=== PATIENT | male | born 1965 | race Caucasian/White ===

== ENCOUNTER 2017-05-08 12:40 | Inpatient (IN) | payer MEDICAID ==
[~2017-05-08] VITALS: Ht 172.7 cm; Wt 108.0 kg
[2017-05-08] MEDS ORDERED: NACL 0.9% 1,000 ML IV ONE ×2 (12:55→15:15)
[2017-05-08] MEDS ORDERED: ASPIRIN 325 MG TAB PO ONE (12:55)
[2017-05-08] MEDS ORDERED: DILTIAZEM 25 MG/5 ML VIAL IVP ONE (12:55)
[2017-05-08 12:56] VITALS: BP 124/65
[2017-05-08] MEDS ORDERED: INSULIN REGULAR, HUMAN 100 UNIT/ML VIAL IV ONE (13:15)
[2017-05-08 13:41] LABS: HEMATOCRIT 43.8 % (36-52); HEMOGLOBIN 14.7 g/dL (12.0-18.0); MEAN CORPUSCULAR HEMOGLOBIN 30 pg (27-31); MEAN CORPUSCULAR HGB CONC 34 g/dL (33-37); MEAN CORPUSCULAR VOLUME 89.5 fL (80-94); PLATELET COUNT (AUTO) 90 K/uL (140-450); RED CELL DISTRIBUTION WIDTH 13.8 % (11.6-13.7); WHITE BLOOD COUNT (AUTO) 7.2 K/uL (4.8-10.8)
[2017-05-08 14:13] LABS: ALBUMIN 3.1 g/dL (3.4-5.0); CREATININE 0.9 mg/dL (0.7-1.3); TOTAL BILIRUBIN 0.6 mg/dL (0.0-1.0)
[2017-05-08 14:14] LABS: FREE T4 (FREE THYROXINE) 1.17 ng/dL (0.76-1.46); THYROID STIMULATING HORMONE 3.85 uIU/mL (0.34-3.74)
[2017-05-08 14:23] LABS: LYMPHOCYTES % (MANUAL) 56 % (20-46)
[2017-05-08 14:24] LABS: MONOCYTES % (MANUAL) 6 % (5-12)
[2017-05-08 14:43] LABS: BARBITURATE, URINE NEG. ng/ml (NEG <=200); BENZODIAZEPINE, URINE NEG. ng/mL (NEG <=200); CANNABINOID, URINE NEG. ng/mL (NEG <=50); COCAINE, URINE NEG. ng/mL (NEG <=300); OPIATE, URINE NEG. ng/mL (NEG <=2000); PHENCYCLIDINE SCREEN,URINE NEG. ng/mL (NEG <=25)
[2017-05-08 14:46] LABS: APPEARANCE,URINE CLEAR (CLEAR); BILIRUBIN,URINE NEGATIVE (NEGATIVE); BLOOD, URINE 2+ (NEGATIVE); LEUKOCYTE ESTERASE ,URINE NEGATIVE (NEGATIVE); NITRITE, URINE NEGATIVE (NEGATIVE); PH,URINE 5.5 (5.0-9.0); UGLUCOSE 3+ (NEGATIVE)
[2017-05-08 15:01] LABS: COLOR,URINE STRAW (YELLOW)
[2017-05-08 15:11] LABS: RBC,URINE 0-5 (RARE) /HPF (0-5); WBC,URINE NONE SEEN /HPF (0-5)
[2017-05-08] MEDS ORDERED: INSULIN REGULAR, HUMAN 100 UNIT/ML VIAL IVP ONE (15:15)
[2017-05-08 17:00] VITALS: BP 131/87
[2017-05-08] MEDS ORDERED: PNEUMOCOCCAL VACCINE 23 MCG/0.5 ML VIAL IMVAC SCH (18:05)
[2017-05-08] MEDS ORDERED: NITROGLYCERIN 0.4 MG TAB SL PRN ×3 (18:45→21:15)
[2017-05-08] MEDS ORDERED: METO25TA PO (19:29)
[2017-05-08] MEDS ORDERED: MONT10TA35 PO (19:29)
[2017-05-08] MEDS ORDERED: SIMV20TA1 PO (19:29)
[2017-05-08] MEDS ORDERED: FURO20TA8 PO (19:29)
[2017-05-08] MEDS ORDERED: GABA100C PO (19:29)
[2017-05-08] MEDS ORDERED: BENZ1TAB42 PO (19:29)
[2017-05-08] MEDS ORDERED: METF500T PO (19:29)
[2017-05-08] MEDS ORDERED: BUS5 PO (19:29)
[2017-05-08] MEDS ORDERED: OMEP20TC12 PO (19:29)
[2017-05-08] MEDS ORDERED: DIVA500T1 PO (19:29)
[2017-05-08] MEDS ORDERED: SYN.05 PO (19:29)
[2017-05-08] MEDS ORDERED: LOSA25TA22 PO (19:29)
[2017-05-08] MEDS ORDERED: ISOS10TA9 PO (19:29)
[2017-05-08] MEDS: DEXT 5% / NACL 0.45% 1,000 ML IV SCH (19:45)
[2017-05-08 20:00] VITALS: BP 122/83
[2017-05-08] MEDS ORDERED: LORazepam 2 MG/ML VIAL IVP PRN (21:15)
[2017-05-08] MEDS ORDERED: LORazepam 1 MG TAB PO PRN (21:15)
[2017-05-08] MEDS ORDERED: MORPHINE SULFATE 2 MG/ML SYR IVP PRN ×2 (21:15)
[2017-05-08] MEDS ORDERED: ALUMINUM HYD/MAG/SIMETHICONE 30 ML UDC PO PRN (21:15)
[2017-05-08] MEDS ORDERED: ACETAMINOPHEN 325 MG TAB PO PRN (21:15)
[2017-05-08] MEDS ORDERED: DEXTROSE 50% 50 ML SYR IVP PRN (21:15)
[2017-05-08] MEDS ORDERED: ZOLPIDEM 5 MG TAB PO PRN (21:15)
[2017-05-08] MEDS ORDERED: ONDANSETRON 4 MG/2 ML VIAL IVP PRN (21:15)
[2017-05-08] MEDS ORDERED: HYDROcodone/APAP 5/325 MG 1 TAB TAB PO PRN (21:15)
[2017-05-08] MEDS: INSULIN LISPRO SLIDING SCALE 100 UNITS/ML VIAL SUBQ PRN (22:04)
[2017-05-08 22:51] LABS: CREATINE KINASE MB 0.3 ng/mL (0-3.6)
[2017-05-09] VITALS: BP 142/96
[2017-05-09] MEDS: DEXT 5% / NACL 0.45% 1,000 ML IV SCH (03:50)
[2017-05-09 04:00] VITALS: BP 141/99
[2017-05-09] MEDS: INSULIN LISPRO SLIDING SCALE 100 UNITS/ML VIAL SUBQ PRN ×3 (06:05→20:30)
[2017-05-09] MEDS: LEVOTHYROXINE 0.05 MG TAB PO SCH (06:05)
[2017-05-09] MEDS: BLOOD GLUCOSE MONITORING 1 DEV DEV FS SCH ×4 (06:05→20:27)
[2017-05-09 08:00] VITALS: BP 167/101
[2017-05-09 08:00] LABS: HEMATOCRIT 40.2 % (36-52); HEMOGLOBIN 13.7 g/dL (12.0-18.0); MEAN CORPUSCULAR HEMOGLOBIN 30 pg (27-31); MEAN CORPUSCULAR HGB CONC 34 g/dL (33-37); MEAN CORPUSCULAR VOLUME 88.6 fL (80-94); PLATELET COUNT (AUTO) 76 K/uL (140-450); RED BLOOD CELL COUNT(AUTO) 4.54 MIL/uL (4.20-6.10); RED CELL DISTRIBUTION WIDTH 13.6 % (11.6-13.7); WHITE BLOOD COUNT (AUTO) 6.8 K/uL (4.8-10.8)
[2017-05-09] MEDS ORDERED: metFORMIN 500 MG TAB PO SCH ×2 (08:00→12:00)
[2017-05-09 08:14] LABS: ANION GAP 14.5 (8-16); CARBON DIOXIDE 25.4 mmol/L (21-32); CREATININE 0.8 mg/dL (0.7-1.3); POTASSIUM 3.9 mmol/L (3.5-5.1)
[2017-05-09 08:18] LABS: MAGNESIUM 1.7 mg/dL (1.8-2.4); PHOSPHORUS 4.2 mg/dL (2.5-4.9)
[2017-05-09] MEDS: busPIRone 5 MG TAB PO SCH (08:24)
[2017-05-09] MEDS: GABAPENTIN 100 MG CAP PO SCH ×2 (08:25→20:29)
[2017-05-09] MEDS: BENZTROPINE 1 MG TAB PO SCH ×2 (08:25→20:27)
[2017-05-09] MEDS: MONTELUKAST SODIUM 10 MG TAB PO SCH (08:25)
[2017-05-09] MEDS: LOSARTAN 25 MG TAB PO SCH (08:26)
[2017-05-09] MEDS: FUROSEMIDE 20 MG TAB PO SCH (08:26)
[2017-05-09] MEDS: METOPROLOL 50 MG TAB PO SCH ×2 (08:27→20:28)
[2017-05-09] MEDS: ISOSORBIDE DINITRATE 10 MG TAB PO SCH ×2 (08:27→20:28)
[2017-05-09] MEDS: DOCUSATE SODIUM 100 MG GELCAP PO SCH (08:27)
[2017-05-09] MEDS: DIVALPROEX 500 MG TABEC PO SCH ×2 (08:42→20:27)
[2017-05-09] MEDS: IBUPROFEN 600 MG TAB PO PRN ×2 (08:42→20:29)
[2017-05-09] MEDS ORDERED: NON-FORMULARY ITEM (Omeprazole (Omeprazole) 20 MG) PO SCH (09:00)
[2017-05-09] MEDS ORDERED: DIVALPROEX 500 MG TABER PO SCH (09:00)
[2017-05-09 09:24] LABS: CREATINE KINASE MB 1.1 ng/mL (0-3.6)
[2017-05-09 09:33] LABS: EOSINOPHILS % (MANUAL) 1 % (0-4); LYMPHOCYTES % (MANUAL) 44 % (20-46); MONOCYTES % (MANUAL) 5 % (5-12)
[2017-05-09] MEDS: PANTOPRAZOLE 40 MG TABEC PO SCH (09:53)
[2017-05-09 12:00] VITALS: BP 126/81
[2017-05-09] MEDS ORDERED: LOVENOX 1MG/KG Q12H SUBQ SCH (12:05)
[2017-05-09] MEDS: PIOGLITAZONE 30 MG TAB PO SCH ×2 (12:13→12:15)
[2017-05-09] MEDS ORDERED: ASPIRIN 81 MG TAB.CHEW PO SCH (13:45)
[2017-05-09 16:00] VITALS: BP 144/101
[2017-05-09] MEDS: metFORMIN 500 MG TAB PO SCH (17:30)
[2017-05-09 19:45] VITALS: BP 169/98
[2017-05-09] MEDS: SIMVASTATIN 20 MG TAB PO SCH (20:29)
[2017-05-09] MEDS ORDERED: MAG SULF 2000 MG/WATER PREMIX 50 ML IV SCH (21:30)
[2017-05-10] VITALS: BP_SYST 132; BP_SYST 159; BP_DIAS 74; BP_DIAS 87
[2017-05-10 04:00] VITALS: BP 154/99
[2017-05-10] MEDS: LEVOTHYROXINE 0.05 MG TAB PO SCH (06:30)
[2017-05-10] MEDS: INSULIN LISPRO SLIDING SCALE 100 UNITS/ML VIAL SUBQ PRN ×4 (06:31→21:33)
[2017-05-10] MEDS: BLOOD GLUCOSE MONITORING 1 DEV DEV FS SCH ×4 (06:31→21:00)
[2017-05-10 07:43] LABS: HEMATOCRIT 40.2 % (36-52); HEMOGLOBIN 13.5 g/dL (12.0-18.0); MEAN CORPUSCULAR HEMOGLOBIN 30 pg (27-31); MEAN CORPUSCULAR HGB CONC 34 g/dL (33-37); PLATELET COUNT (AUTO) 78 K/uL (140-450); RED BLOOD CELL COUNT(AUTO) 4.47 MIL/uL (4.20-6.10); RED CELL DISTRIBUTION WIDTH 13.3 % (11.6-13.7); WHITE BLOOD COUNT (AUTO) 6.5 K/uL (4.8-10.8)
[2017-05-10 07:53] LABS: ANION GAP 13.2 (8-16); CARBON DIOXIDE 26.9 mmol/L (21-32); CREATININE 0.8 mg/dL (0.7-1.3); POTASSIUM 4.1 mmol/L (3.5-5.1)
[2017-05-10 08:00] VITALS: BP 143/100
[2017-05-10] MEDS: GABAPENTIN 100 MG CAP PO SCH ×2 (08:27→20:55)
[2017-05-10] MEDS: PANTOPRAZOLE 40 MG TABEC PO SCH (08:27)
[2017-05-10] MEDS: busPIRone 5 MG TAB PO SCH (08:27)
[2017-05-10] MEDS: metFORMIN 500 MG TAB PO SCH ×2 (08:28→16:28)
[2017-05-10] MEDS: BENZTROPINE 1 MG TAB PO SCH ×2 (08:28→20:54)
[2017-05-10] MEDS: MONTELUKAST SODIUM 10 MG TAB PO SCH (08:28)
[2017-05-10] MEDS: PIOGLITAZONE 30 MG TAB PO SCH (08:29)
[2017-05-10] MEDS: FUROSEMIDE 20 MG TAB PO SCH (08:29)
[2017-05-10] MEDS: LOSARTAN 25 MG TAB PO SCH (08:29)
[2017-05-10] MEDS: DIVALPROEX 500 MG TABEC PO SCH ×2 (08:29→20:54)
[2017-05-10] MEDS: METOPROLOL 50 MG TAB PO SCH ×2 (08:30→20:55)
[2017-05-10] MEDS: ISOSORBIDE DINITRATE 10 MG TAB PO SCH ×2 (08:30→20:55)
[2017-05-10] MEDS: DOCUSATE SODIUM 100 MG GELCAP PO SCH (08:31)
[2017-05-10] MEDS: ASPIRIN 81 MG TAB.CHEW PO SCH (08:31)
[2017-05-10] MEDS ORDERED: ASPIRIN 81 MG TAB.CHEW PO SCH (09:00)
[2017-05-10 09:19] LABS: EOSINOPHILS % (MANUAL) 2 % (0-4); LYMPHOCYTES % (MANUAL) 53 % (20-46); MONOCYTES % (MANUAL) 11 % (5-12)
[2017-05-10 12:00] VITALS: BP 138/87
[2017-05-10] MEDS: IBUPROFEN 600 MG TAB PO PRN (12:22)
[2017-05-10 16:00] VITALS: BP 130/80
[2017-05-10 20:00] VITALS: BP 149/93
[2017-05-10] MEDS: SIMVASTATIN 20 MG TAB PO SCH (20:55)
[2017-05-11] VITALS: BP 146/98
[2017-05-11] MEDS: IBUPROFEN 600 MG TAB PO PRN (00:06)
[2017-05-11 04:40] VITALS: BP 136/92
[2017-05-11 05:50] LABS: HEMATOCRIT 41.9 % (36-52); HEMOGLOBIN 13.9 g/dL (12.0-18.0); MEAN CORPUSCULAR HEMOGLOBIN 30 pg (27-31); MEAN CORPUSCULAR HGB CONC 33 g/dL (33-37); MEAN CORPUSCULAR VOLUME 89.4 fL (80-94); PLATELET COUNT (AUTO) 90 K/uL (140-450); RED BLOOD CELL COUNT(AUTO) 4.68 MIL/uL (4.20-6.10); RED CELL DISTRIBUTION WIDTH 13.6 % (11.6-13.7); WHITE BLOOD COUNT (AUTO) 7.6 K/uL (4.8-10.8)
[2017-05-11] MEDS: BLOOD GLUCOSE MONITORING 1 DEV DEV FS SCH (06:00)
[2017-05-11] MEDS: LEVOTHYROXINE 0.05 MG TAB PO SCH (06:45)
[2017-05-11] MEDS: INSULIN LISPRO SLIDING SCALE 100 UNITS/ML VIAL SUBQ PRN (06:46)
[2017-05-11 07:44] LABS: ALBUMIN 2.9 g/dL (3.4-5.0); ANION GAP 13.9 (8-16); CARBON DIOXIDE 27.4 mmol/L (21-32); CREATININE 0.9 mg/dL (0.7-1.3); POTASSIUM 4.3 mmol/L (3.5-5.1); TOTAL BILIRUBIN 0.5 mg/dL (0.0-1.0)
[2017-05-11 08:00] VITALS: BP 155/98
[2017-05-11] MEDS: PIOGLITAZONE 30 MG TAB PO SCH (08:45)
[2017-05-11] MEDS: ISOSORBIDE DINITRATE 10 MG TAB PO SCH (08:45)
[2017-05-11] MEDS: LOSARTAN 25 MG TAB PO SCH (08:45)
[2017-05-11] MEDS: DIVALPROEX 500 MG TABEC PO SCH (08:45)
[2017-05-11] MEDS: ASPIRIN 81 MG TAB.CHEW PO SCH (08:46)
[2017-05-11] MEDS: METOPROLOL 50 MG TAB PO SCH (08:46)
[2017-05-11] MEDS: FUROSEMIDE 20 MG TAB PO SCH (08:46)
[2017-05-11] MEDS: metFORMIN 500 MG TAB PO SCH (08:47)
[2017-05-11] MEDS: BENZTROPINE 1 MG TAB PO SCH (08:47)
[2017-05-11] MEDS: DOCUSATE SODIUM 100 MG GELCAP PO SCH ×2 (08:47→08:51)
[2017-05-11] MEDS: GABAPENTIN 100 MG CAP PO SCH (08:47)
[2017-05-11] MEDS: MONTELUKAST SODIUM 10 MG TAB PO SCH (08:47)
[2017-05-11] MEDS: busPIRone 5 MG TAB PO SCH (08:48)
[2017-05-11] MEDS: PANTOPRAZOLE 40 MG TABEC PO SCH (08:48)
[2017-05-11 11:13] LABS: EOSINOPHILS % (MANUAL) 5 % (0-4); LYMPHOCYTES % (MANUAL) 61 % (20-46); MONOCYTES % (MANUAL) 12 % (5-12)
[2017-05-11 11:46] LABS: PROTHROMBIN TIME 10.7 secs (10.8-13.4)
== END 2017-05-11 11:35 | disposition short-term general hospital (02) | DRG 190 ==
LOC: MED 12:40 → MTU 16:24
PROVIDERS: ADMIT Preventive Medicine Preventive Medicine/Occupational Environmental Medicine; ATTEND Preventive Medicine Preventive Medicine/Occupational Environmental Medicine
PROC: 3E0234Z Introduction of Serum, Toxoid and Vaccine into Muscle, Percutaneous Approach (ICD-10-PCS; principal; 2017-05-08)
DX: I21.A1 Myocardial infarction type 2 (principal); E43 Unspecified severe protein-calorie malnutrition; D69.6 Thrombocytopenia, unspecified; E11.40 Type 2 diabetes mellitus with diabetic neuropathy, unspecified; E11.65 Type 2 diabetes mellitus with hyperglycemia; I10 Essential (primary) hypertension; I48.0 Paroxysmal atrial fibrillation; E78.5 Hyperlipidemia, unspecified; R31.9 Hematuria, unspecified; E03.9 Hypothyroidism, unspecified; F31.9 Bipolar disorder, unspecified; I24.9 Acute ischemic heart disease, unspecified; I25.119 Atherosclerotic heart disease of native coronary artery with unspecified angina pectoris; Z82.49 Family history of ischemic heart disease and other diseases of the circulatory system; Z68.36 Body mass index [BMI] 36.0-36.9, adult; Z88.8 Allergy status to other drugs, medicaments and biological substances; Z23 Encounter for immunization; Z79.84 Long term (current) use of oral hypoglycemic drugs; Z79.899 Other long term (current) drug therapy
CPT/HCPCS: 36415; 80048; 80053; 80305; 81001; 82550; 82553; 82948; 83735; 83880; 84100; 84439; 84443; 84484; 85025; 85379; 85610; 85730; 87081; 90732; 93005; 96360; 99285; J1815; J3475; J7030

== ENCOUNTER 2018-03-26 16:15 | Emergency (ER) | payer MEDICAID ==
[~2018-03-26] VITALS: Ht 172.7 cm; Wt 104.3 kg
[~2018-03-26 16:15] MED LIST: BENZ-248 PO; BUS5 PO; DIVA500T1 PO; FURO20TA8 PO; GABA100C PO; ISOS10TA9 PO; LOSA25TA43 PO; METF500T PO; METO25TA PO; MONT10TA35 PO; OMEP20TC12 PO; SIMV20TA1 PO; SYN.05 PO
[2018-03-26 16:32] VITALS: BP 169/103
--- NOTE | 2018-03-26 17:15 | NUR ---
PATIENT TAKEN TO ER BED 12.
--- NOTE | 2018-03-26 17:20 | NUR ---
PT BIB TO THE ED WITH THE CHIEF C/O LEFT GREAT TOE PAIN. DENIES ANY INJURY. NO SWELLING OR INJURY NOTED. NO ANY DRAINAGE NOTED. PT WAS SEEN BY DIRECTOR OF CAREER SERVICES ON February TAKING TERBINAFINE HCL SINCE THEN. 6/10 THROBBING PAIN IN LET GREAT TOE THAT IS NON RADIATING. ROM INTACT. CAP REFILL LESS THAN 3 SEC. ER MD MADE AWARE. SAFETY PRECAUTIONS IMPLEMENTED. WILL CONTINUE TO MONITOR. FAMILY MEMBER AT BEDSIDE. HX OF NEUROPATHY, DM, COPD, ANXIETY, GERD, HTN, HYPOTHYROIDISM, A FIB.
--- NOTE | 2018-03-26 17:55 | NUR ---
XRAY AT BEDSIDE AT THIS TIME.
[2018-03-26 18:18] VITALS: BP 168/99
--- NOTE | 2018-03-26 18:18 | NUR ---
Patient discharged with v/s stable. Written and verbal after care instructions given and explained. Patient alert, oriented and verbalized understanding of instructions. Ambulatory with steady gait. All questions addressed prior to discharge. ID band removed. Patient advised to follow up with PMD. Rx of CLINDAMYCIN 300MG, BACTRIM DS given. Patient educated on indication of medication including possible reaction and side effects. Opportunity to ask questions provided and answered.
== END 2018-03-26 18:18 | disposition home or self-care (01) ==
LOC: MED 16:15
DX: M79.675 Pain in left toe(s) (principal); I10 Essential (primary) hypertension; E11.9 Type 2 diabetes mellitus without complications; J44.9 Chronic obstructive pulmonary disease, unspecified; F17.210 Nicotine dependence, cigarettes, uncomplicated; Z88.8 Allergy status to other drugs, medicaments and biological substances
CPT/HCPCS: 73660; 99283; Q0092

== ENCOUNTER 2019-01-10 14:49 | Emergency (ER) | payer MEDICAID ==
[~2019-01-10] VITALS: Ht 172.7 cm; Wt 91.2 kg
[~2019-01-10 14:49] MED LIST changes: +BENZ-203 PO; -BENZ-248 PO
[2019-01-10 14:56] VITALS: BP 121/86
[2019-01-10] MEDS ORDERED: LIDOCAINE MPF 1% 10 MG/ML VIAL INJ ONE (15:05)
--- NOTE | 2019-01-10 15:05 | NUR ---
Patient recieved from triage, AAOX4, W/ AT BEDSIDE. 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 PENDING PRE MED AND SURGICAL INTERVENTION.
--- NOTE | 2019-01-10 15:25 | NUR ---
Tetanus shot given as per orders. Nicolas Leon at bedside for surgical intervention, of left index finger open laceration injury
[2019-01-10] MEDS ORDERED: BACITRACIN OINT 500 UNITS/GM PKT TP ONE (15:50)
[2019-01-10 15:54] VITALS: BP 132/82
== END 2019-01-10 15:54 | disposition home or self-care (01) ==
LOC: MED 14:49
DX: S61.211A Laceration without foreign body of left index finger without damage to nail, initial encounter (principal); J44.9 Chronic obstructive pulmonary disease, unspecified; E11.9 Type 2 diabetes mellitus without complications; I10 Essential (primary) hypertension; Z88.8 Allergy status to other drugs, medicaments and biological substances; Z79.84 Long term (current) use of oral hypoglycemic drugs; Z79.899 Other long term (current) drug therapy; W26.0XXA Contact with knife, initial encounter; Y93.89 Activity, other specified; Y92.89 Other specified places as the place of occurrence of the external cause; Y99.8 Other external cause status
CPT/HCPCS: 12001; 90471; 90715; 99283; J2001

== ENCOUNTER 2019-01-17 08:10 | Emergency (ER) | payer MEDICAID ==
[~2019-01-17] VITALS: Ht 172.7 cm; Wt 92.1 kg
[2019-01-17 08:15] VITALS: BP 118/94
--- NOTE | 2019-01-17 08:27 | NUR ---
53 Y/O M AT THE ED FOR SUTURE REMOVE PLACED X1 WEEK AGO TO THE LEFT 4TH FINGER LACERATION. PT STATES NO PAIN. THE AREA IS CLEAN, DRY WITH NO REDNESS. SUTURES ARE STILL INTACT. SUTURE REMOVAL KIT PLACED AT [facility]. PT BED LOWERED ANDX1 SIDERAIL IN PLACE. ALLERGIES: HEPARIN
--- NOTE | 2019-01-17 08:35 | NUR ---
TWO SUTURES WERE REMOVED WITHOUT DIFFICULTY FROM THE PATIENTS LEFT 4TH FINGER. THE AREA IS CLEAN, DRY AND FREE OF REDNESS AND SWELLING. PT TOLERATED THIS WELL AND VERBALIZED UNDERSTANDING OF HOME CARE TO THE AREA.
[2019-01-17 08:39] VITALS: BP 118/94
--- NOTE | 2019-01-17 08:39 | NUR ---
Patient discharged with v/s stable. Written and verbal after care instructions given and explained. Patient verbalized understanding. Ambulatory with steady gait. All questions addressed prior to discharge. Advised to follow up with PMD.
== END 2019-01-17 08:39 | disposition home or self-care (01) ==
LOC: MED 08:10
DX: S61.411D Laceration without foreign body of right hand, subsequent encounter (principal); J44.9 Chronic obstructive pulmonary disease, unspecified; E11.9 Type 2 diabetes mellitus without complications; I10 Essential (primary) hypertension; Z98.890 Other specified postprocedural states; Z79.84 Long term (current) use of oral hypoglycemic drugs; Z79.899 Other long term (current) drug therapy; Z88.8 Allergy status to other drugs, medicaments and biological substances; X58.XXXD Exposure to other specified factors, subsequent encounter
CPT/HCPCS: 99281

== ENCOUNTER 2019-03-18 18:26 | Emergency (ER) | payer MEDICAID ==
[~2019-03-18] VITALS: Ht 172.7 cm; Wt 89.8 kg
[2019-03-18 18:48] VITALS: BP 126/95
--- NOTE | 2019-03-18 18:50 | NUR ---
TO LOBBY, VSS. AWAITING BED IN ED.
--- NOTE | 2019-03-18 19:58 | NUR ---
PT TAKEN TO CHAIR A
--- NOTE | 2019-03-18 19:59 | NUR ---
DR. ANG WAGNER AT CHAIR A
[2019-03-18 20:08] VITALS: BP 126/95
--- NOTE | 2019-03-18 20:08 | NUR ---
Patient discharged with v/s stable. Seen and discharged by Dr Lee. Written and verbal after care instructions given and explained. Patient alert, oriented and verbalized understanding of instructions. Ambulatory with steady gait. All questions addressed prior to discharge. ID band removed. Patient advised to follow up with PMD. Rx of Naprosyn given. Patient educated on indication of medication including possible reaction and side effects. Opportunity to ask questions provided and answered.
== END 2019-03-18 20:08 | disposition home or self-care (01) ==
LOC: MED 18:26
DX: S83.92XA Sprain of unspecified site of left knee, initial encounter (principal); M13.862 Other specified arthritis, left knee; J44.9 Chronic obstructive pulmonary disease, unspecified; E11.9 Type 2 diabetes mellitus without complications; I10 Essential (primary) hypertension; Z98.890 Other specified postprocedural states; Z79.84 Long term (current) use of oral hypoglycemic drugs; Z79.899 Other long term (current) drug therapy; Z88.8 Allergy status to other drugs, medicaments and biological substances; W19.XXXA Unspecified fall, initial encounter; Y93.89 Activity, other specified; Y92.89 Other specified places as the place of occurrence of the external cause; Y99.8 Other external cause status
CPT/HCPCS: 73562; 99283

== ENCOUNTER 2020-03-30 12:34 | Emergency (ER) | payer MEDICAID ==
[~2020-03-30] VITALS: Ht 172.7 cm; Wt 102.5 kg
[2020-03-30 12:39] VITALS: BP 206/123
--- NOTE | 2020-03-30 12:43 | NUR ---
PT AMBULATED TO BED 4.
--- NOTE | 2020-03-30 12:47 | NUR ---
54 y/o male from home c/o persistent high blood pressure with dizziness and lower back pain that radiates to bilateral lower extremities x 2 wks. Denies trauma/injury to back/lower extremities. States 9/10 sharp pain to both head and lower back. Awake and alert. medhx: htn, copd, bipolar
--- NOTE | 2020-03-30 13:22 | NUR ---
Patient being evaluated by Dr. Lee at bedside.
--- NOTE | 2020-03-30 13:25 | NUR ---
SEEN AND EXAMINED BY DR. FRY
[2020-03-30] MEDS: MORPHINE SULFATE 4 MG/ML SYR IM ONE (13:34)
--- NOTE | 2020-03-30 15:17 | NUR ---
Patient positioned for comfort. Decrease in pain at this time.
[2020-03-30] MEDS ORDERED: LID5T TP (15:28)
[2020-03-30] MEDS ORDERED: NAPR-54 PO (15:28)
[2020-03-30] MEDS ORDERED: DIAZ5TAB7 PO (15:28)
[2020-03-30 15:37] VITALS: BP 175/109
--- NOTE | 2020-03-30 15:38 | NUR ---
Patient discharged with v/s stable. Written and verbal after care instructions given and explained. Patient alert, oriented and verbalized understanding of instructions. Ambulatory with steady gait. All questions addressed prior to discharge. ID band removed. Patient advised to follow up with PMD. Rx of Diazepam, Lidocaine patch, and Naproxen given. Patient educated on indication of medication including possible reaction and side effects. Opportunity to ask questions provided and answered.
== END 2020-03-30 15:38 | disposition home or self-care (01) ==
LOC: MED 12:34
DX: M54.5 Low back pain (principal); I10 Essential (primary) hypertension; J44.9 Chronic obstructive pulmonary disease, unspecified; E11.9 Type 2 diabetes mellitus without complications; Z88.8 Allergy status to other drugs, medicaments and biological substances; Z79.899 Other long term (current) drug therapy
CPT/HCPCS: 81002; 96372; 99283; J2270

== ENCOUNTER 2020-04-05 14:20 | Emergency (ER) | payer MEDICAID ==
[~2020-04-05] VITALS: Ht 172.7 cm; Wt 102.1 kg
[~2020-04-05 14:20] MED LIST changes: +DIAZ5TAB7 PO; +LID5T TP; +NAPR-54 PO
[2020-04-05 14:26] VITALS: BP 166/101
--- NOTE | 2020-04-05 14:34 | NUR ---
PT AMB TO BED 11.
--- NOTE | 2020-04-05 14:35 | NUR ---
54 YO M BIB SELF FOR C/C OF 6/10 LOWER BACK AND BILATERAL LOWER LEG PAIN X2 WEEKS THAT WORSENS TO 8/10 WITH MOVEMENT. PT DENIES TRAUMA OR INJURY TO BACK, REPORTS NUMBNESS/TINGLING IN LOWER EXTREMETIES AND HAMSTRING/CALF MUSCLE CRAMPING DURING AMBULATION. PT TOOK 1000MG OF TYLENOL AND 400MG OF ADVIL AT 0900 WITH NO RELIEF OF SYMPTOMS. BED LOCKED AND IN LOWEST POSITION. SIDE RAILS X1. MED HX: HTN, BIPOLAR RX: LOPRESSOR, COZAAR, DEPAKOTE, ASPIRIN
--- NOTE | 2020-04-05 15:13 | NUR ---
BATOOL LANDAVERDE EVALUATING PATIENT AT BEDSIDE.
[2020-04-05] MEDS ORDERED: KETOROLAC 60 MG/2 ML VIAL IM ONE ×2 (15:19→15:20)
[2020-04-05] MEDS ORDERED: PRED20TA5 PO (15:31)
[2020-04-05] MEDS ORDERED: IBUP-2213 PO (15:31)
[2020-04-05] MEDS ORDERED: DICL100G5 TP (15:31)
[2020-04-05 15:40] VITALS: BP 166/101
--- NOTE | 2020-04-05 15:40 | NUR ---
Patient discharged with v/s stable. Written and verbal after care instructions given and explained. Patient alert, oriented and verbalized understanding of instructions. Ambulatory with steady gait. All questions addressed prior to discharge. ID band removed. Patient advised to follow up with PMD. Rx of DICLOFENAC SODIUM, IBUPROFEN, PREDNISONE given. Patient educated on indication of medication including possible reaction and side effects. Opportunity to ask questions provided and answered.
== END 2020-04-05 15:40 | disposition home or self-care (01) ==
LOC: MED 14:20
DX: M54.30 Sciatica, unspecified side (principal); J44.9 Chronic obstructive pulmonary disease, unspecified; E11.9 Type 2 diabetes mellitus without complications; I10 Essential (primary) hypertension; Z79.899 Other long term (current) drug therapy; Z88.8 Allergy status to other drugs, medicaments and biological substances
CPT/HCPCS: 81002; 96372; 99283; J1885

== ENCOUNTER 2021-06-09 12:03 | Emergency (ER) | payer MEDICAID ==
[~2021-06-09] VITALS: Ht 172.7 cm; Wt 73.5 kg
[~2021-06-09 12:03] MED LIST changes: -BENZ-203 PO; +BENZ-315 PO; -DIAZ5TAB7 PO; +DIAZ5TAB8 PO; +DICL100G5 TP; +IBUP-2213 PO; +METF-564 PO; -METF500T PO; +OMEP-278 PO; -OMEP20TC12 PO; +PRED20TA5 PO
--- NOTE | 2021-06-09 12:23 | NUR ---
PT CALLED AT 12:20 FOR EKG, PT REFUSED TO COME OUT OF BATHROOM, HAS BEEN IN THERE FOR MORE THAN 20 MINS. CHARGE NURSE AND ERMD NOTIFIED.
[2021-06-09 12:41] VITALS: BP 140/87
[2021-06-09] MEDS ORDERED: HYDROcodone/APAP 10/325 MG 1 TAB TAB PO STA (14:05)
[2021-06-09 14:18] LABS: BASOPHILS % (AUTO) 0.1 % (0.0-2.0); EOSINOPHILS % (AUTO) 0.2 % (0.0-4.0); HEMATOCRIT 38.6 % (36-52); LYMPHOCYTES # (AUTO) 1.2 K/uL (2.0-11.5); LYMPHOCYTES % (AUTO) 8.8 % (20.5-51.1); MEAN CORPUSCULAR HEMOGLOBIN 31 pg (27-31); MEAN CORPUSCULAR HGB CONC 34 g/dL (33-37); MEAN CORPUSCULAR VOLUME 91.2 fL (80-94); MONOCYTES # (AUTO) 1.4 K/uL (0.8-1.0); MONOCYTES % (AUTO) 10.5 % (1.7-9.3); NEUTROPHILS # (AUTO) 10.6 K/uL (1.8-7.7); NEUTROPHILS % (AUTO) 80.4 % (42.2-75.2); PLATELET COUNT (AUTO) 192 K/uL (140-450); RED BLOOD CELL COUNT(AUTO) 4.23 MIL/uL (4.20-6.10); RED CELL DISTRIBUTION WIDTH 14.7 % (11.6-13.7); WHITE BLOOD COUNT (AUTO) 13.2 K/uL (4.8-10.8)
[2021-06-09 14:37] LABS: ALBUMIN 3.3 g/dL (3.4-5.0); ANION GAP 9.7 (8-16); CARBON DIOXIDE 30.2 mmol/L (21-32); CREATININE 0.7 mg/dL (0.6-1.3); POTASSIUM 3.9 mmol/L (3.5-5.1); TOTAL BILIRUBIN 0.6 mg/dL (0.0-1.0)
[2021-06-09] MEDS ORDERED: AZIT250T4 PO (14:58)
[2021-06-09] MEDS ORDERED: AMOX-1230 PO (14:58)
[2021-06-09] MEDS ORDERED: TAMS0.4C96 PO (15:07)
[2021-06-09] MEDS ORDERED: GABA300C1 PO (15:07)
[2021-06-09] MEDS ORDERED: NAPR-54 PO (15:07)
[2021-06-09] MEDS ORDERED: ALBU0.0912 IH (15:07)
[2021-06-09] MEDS ORDERED: AMOXIL/CLAVULANATE 875/125 MG 1 TAB PO ONE (15:15)
--- NOTE | 2021-06-09 15:38 | NUR ---
PO MEDS GIVEN-NADR AT THIS TIME
[2021-06-09 15:47] VITALS: BP 140/82
--- NOTE | 2021-06-09 15:49 | NUR ---
Patient discharged with v/s stable. Written and verbal after care instructions given and explained. Patient alert, oriented and verbalized understanding of instructions. Ambulatory with steady gait. All questions addressed prior to discharge. ID band removed. Patient advised to follow up with PMD. Rx of PROVENTIL,AMOX,ZITHROMAX,NEURONTIN,FLOMAX given. Patient educated on indication of medication including possible reaction and side effects. Opportunity to ask questions provided and answered.
== END 2021-06-09 15:47 | disposition home or self-care (01) ==
LOC: MED 12:03
DX: J18.9 Pneumonia, unspecified organism (principal); R07.89 Other chest pain; J44.9 Chronic obstructive pulmonary disease, unspecified; E11.9 Type 2 diabetes mellitus without complications; I10 Essential (primary) hypertension; Z79.84 Long term (current) use of oral hypoglycemic drugs; Z79.899 Other long term (current) drug therapy; Z88.8 Allergy status to other drugs, medicaments and biological substances
CPT/HCPCS: 36415; 71046; 80053; 83880; 84484; 85025; 93005; 99285

== ENCOUNTER 2021-07-09 10:05 | Emergency (ER) | payer MEDICAID ==
[~2021-07-09] VITALS: Ht 172.7 cm; Wt 74.8 kg
[~2021-07-09 10:05] MED LIST changes: +ALBU0.0912 IH; +AMOX-1230 PO; +AZIT250T4 PO; +GABA300C1 PO; +METF-346 PO; -METF-564 PO; +TAMS0.4C96 PO
--- NOTE | 2021-07-09 10:06 | NUR ---
[facility] [address] [facility]
[2021-07-09 10:13] VITALS: BP 101/47
[2021-07-09] MEDS ORDERED: KETOROLAC 30 MG/ML VIAL IM ONE (10:15)
--- NOTE | 2021-07-09 10:20 | NUR ---
55Y MALE BIBA FROM STREETS DUE TO CHRONIC BACK PAIN X3 WEEKS. PT EXPERINCING L LEG, R SHOULDER, AND LOWER BACK PAIN. PT DENIES ANY TRAUMA. STATED "HE WAS CARRYING SOMETHING HEAVY AND SINCE THEN HAS HAD CHRONIC PAIN" PMH: DM ALLERGIES: HEPARIN
--- NOTE | 2021-07-09 10:42 | NUR ---
PT PROVIDED WITH CRACKERS, SANDWHICH, JELLO, AND SODA BEDSIDE
[2021-07-09] MEDS ORDERED: HYDROcodone/APAP 5/325 MG 1 TAB TAB PO ONE (11:05)
[2021-07-09] MEDS ORDERED: ACET-5629 PO (11:25)
[2021-07-09] MEDS ORDERED: NAPR-54 PO (11:25)
--- NOTE | 2021-07-09 14:20 | NUR ---
DC PLANNING PT. IS A 55 YEAR OLD MALE ADMITTED IN THE [facility]/ED ON 07/09/2021; DUE TO COMPLAINTS OF BODY PAIN. SW MEET WITH PATIENT TO DISCUSS AND GATHER HIS COLLATERAL INFORMATION, PATIENT WAS AWAKE AND ALERT AND ABLE TO PROVIDE HIS OWN INFORMATION. PATIENT REPORTED BEEN HOMELESS WITH LIMITED FAMILY SUPPORT FROM HIS FATHER DAYO AZUL SR. HIS EMERGENCY CONTACT AND MEDICAL DECISION MAKER. PATIENT REPORTS NOT HAVING A.D. AND IS NOT INTERESTED ON GETTING INFORMATION FORMS. PATIENT REPORTS HAVING NO ISSUES GETTING HIS MEDICATIONS FROM THE [facility] [address] [place] [id number] . PATIENT REPORTED NOT HAVING OR USING ANY DME AND WANTING TO FOLLOW UP WITH HIS OWN PCP NANCY JONAS WHEN HE IS DISCHARGE. 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 PATIENT AGREED TO FOLLOW UP AND SW WILL ASSIST NEEDED.
== END 2021-07-09 12:54 | disposition home or self-care (01) ==
LOC: MED 10:05
DX: M79.10 Myalgia, unspecified site (principal); G89.29 Other chronic pain; M54.9 Dorsalgia, unspecified; M25.511 Pain in right shoulder; J44.9 Chronic obstructive pulmonary disease, unspecified; E11.9 Type 2 diabetes mellitus without complications; I10 Essential (primary) hypertension; Z98.890 Other specified postprocedural states; Z79.899 Other long term (current) drug therapy; Z79.84 Long term (current) use of oral hypoglycemic drugs; Z88.8 Allergy status to other drugs, medicaments and biological substances
CPT/HCPCS: 96372; 99283; J1885